=== PATIENT | male | born 1930 | race Caucasian/White ===

== ENCOUNTER → 2017-11-02 | Outpatient (CLI) | payer MEDICARE, BC ==
[~2017-11-02] MED LIST: ASPI-986 PO; BETA1TAB20 PO; CHOL200010 PO; CLOP75TA16 PO; FOLI-43 PO; GADOBENATE DIMEGLUMINE 529 MG/ML 10ML IV ONE; LEVO25TA7 PO; SIMV20TA6 PO
== END | disposition home or self-care (01) ==
LOC: MRI 13:49
DX: G45.9 Transient cerebral ischemic attack, unspecified (principal); G31.9 Degenerative disease of nervous system, unspecified; R51 Headache; R42 Dizziness and giddiness; I13.0 Hypertensive heart and chronic kidney disease with heart failure and stage 1 through stage 4 chronic kidney disease, or unspecified chronic kidney disease; N18.9 Chronic kidney disease, unspecified; I50.9 Heart failure, unspecified; Z79.82 Long term (current) use of aspirin
CPT/HCPCS: 70553; A9577

== ENCOUNTER 2018-02-17 21:43 | Emergency (ER) | payer MEDICARE, BC ==
[~2018-02-17] VITALS: Ht 167.6 cm; Wt 71.0 kg
[~2018-02-17 21:43] MED LIST changes: -GADOBENATE DIMEGLUMINE 529 MG/ML 10ML IV ONE
[2018-02-18 00:32] LABS: BASOPHILS % 0.9 % (0.0-2.0); EOSINOPHILS % 3.7 % (0.0-5.0); HEMATOCRIT. 31.8 % (42.0-52.0); HEMOGLOBIN. 10.9 g/dL (14.0-18.0); LYMPHOCYTES % 19.8 % (20.0-50.0); MEAN CORPUSCULAR HEMOGLOBIN 32.2 pg (28.0-32.0); MEAN CORPUSCULAR VOLUME 94.2 fL (80.0-94.0); MEAN PLATELET VOLUME 7.8 fl (7.4-10.4); MONOCYTES % 12.4 % (2.0-8.0); NEUTROPHILS % 63.2 % (40.0-76.0); PLATELET 173 x1000/uL (130-400); RED BLOOD CELL COUNT 3.38 mill/uL (4.7-6.1); RED CELL DISTRIBUTION WIDTH 13.7 % (11.6-14.6)
[2018-02-18 00:39] LABS: CHLORIDE 105 mEq/L (98-107)
[2018-02-18 00:43] LABS: ETHANOL BLOOD < 10 mg/dL
[2018-02-18 00:46] LABS: INR 1.1; PROTHROMBIN TIME 11.6 sec (9.4-11.6)
[2018-02-18 07:13] VITALS: BP 157/66
== END 2018-02-18 07:18 | disposition home or self-care (01) ==
LOC: ER 21:43
DX: S00.83XA Contusion of other part of head, initial encounter (principal); S60.511A Abrasion of right hand, initial encounter; Z79.82 Long term (current) use of aspirin; Z79.02 Long term (current) use of antithrombotics/antiplatelets; W18.30XA Fall on same level, unspecified, initial encounter; Y93.89 Activity, other specified; Y99.8 Other external cause status; Y92.89 Other specified places as the place of occurrence of the external cause; Z88.8 Allergy status to other drugs, medicaments and biological substances; Z95.5 Presence of coronary angioplasty implant and graft
CPT/HCPCS: 36415; 70450; 70486; 71045; 80053; 83880; 84484; 85025; 85610; 93005; 99285; G0482

== ENCOUNTER 2018-11-15 06:08 | Inpatient (IN) | payer MEDICARE, BC ==
[2018-11-15] VITALS (8 sets, daily range): BP systolic 129–199; BP diastolic 71–101
[~2018-11-15] VITALS: Ht 170.2 cm; Wt 64.7 kg
[2018-11-15] MEDS ORDERED: POLY17PO3 PO (08:02)
[2018-11-15] MEDS ORDERED: CARB1TAB5 PO (08:02)
[2018-11-15] MEDS ORDERED: ASPI-1159 PO (08:02)
[2018-11-15] MEDS ORDERED: IODIXANOL 320MG/ML 100 ML BOTTLE IV ONE (08:10)
[2018-11-15] MEDS ORDERED: LIDOCAINE HCL 1% 20ML VIAL (Pyxis) INJ ONE (08:10)
[2018-11-15] MEDS ORDERED: MIDAZOLAM HCL 2 MG/2 ML VIAL ONE (08:14)
[2018-11-15] MEDS ORDERED: FENTANYL CITRATE/PF 50MCG/ML 2ML VIAL ONE (08:14)
[2018-11-15] MEDS ORDERED: IOHEXOL-300 100 ML BOTTLE ONE (08:55)
[2018-11-15] MEDS ORDERED: ASPIRIN 325MG TABLET ONE (09:50)
[2018-11-15] MEDS ORDERED: CLOPIDOGREL 75MG TABLET ONE (09:50)
[2018-11-15] MEDS ORDERED: ATROPINE SULFATE 1MG/10ML SYR IV PRN (10:00)
[2018-11-15] MEDS ORDERED: ACETAMINOPHEN 325MG TABLET PO PRN (10:00)
[2018-11-15] MEDS ORDERED: ONDANSETRON HCL 4MG/2ML INJ IV PRN (10:00)
[2018-11-15] MEDS ORDERED: AMLODIPINE 5MG TABLET PO ONE (11:30)
[2018-11-15] MEDS: POLYETHYLENE GLYCOL 3350 (17GM) 1 DOSE PACK PO SCH (11:45)
[2018-11-15] MEDS ORDERED: SODIUM CHLORIDE 0.45% 500 ML IV ONE (14:00)
[2018-11-15] MEDS: CHOLECALCIFEROL (D3) 1000 UNIT TABLET PO SCH (14:01)
[2018-11-15] MEDS ORDERED: ENALAPRIL 2.5MG/2ML VIAL 2ML IV PRN (14:45)
[2018-11-15] MEDS ORDERED: NITROGLYCERIN 50MCG/ML 10ML VIAL (CATH LAB) IV ONE (14:58)
[2018-11-15] MEDS ORDERED: HEPARIN SODIUM 1,000 UNIT/1ML VIAL IV ONE (15:06)
[2018-11-16] VITALS (7 sets, daily range): BP systolic 104–167; BP diastolic 52–80
[2018-11-16 06:25] LABS: BASOPHILS % 0.9 % (0.0-2.0); EOSINOPHILS % 3.7 % (0.0-5.0); HEMATOCRIT. 29.8 % (42.0-52.0); HEMOGLOBIN. 10.1 g/dL (14.0-18.0); LYMPHOCYTES % 15.2 % (20.0-50.0); MEAN CORPUSCULAR HEMOGLOBIN 32.1 pg (28.0-32.0); MEAN CORPUSCULAR VOLUME 94.8 fL (80.0-94.0); MEAN PLATELET VOLUME 8.3 fl (7.4-10.4); MONOCYTES % 11.2 % (2.0-8.0); PLATELET 165 x1000/uL (130-400); RED BLOOD CELL COUNT 3.15 mill/uL (4.7-6.1); RED CELL DISTRIBUTION WIDTH 13.3 % (11.6-14.6)
[2018-11-16] MEDS ORDERED: LEVOTHYROXINE SODIUM 25MCG TABLET PO SCH (06:50)
[2018-11-16] MEDS: CHOLECALCIFEROL (D3) 1000 UNIT TABLET PO SCH (08:12)
[2018-11-16] MEDS: POLYETHYLENE GLYCOL 3350 (17GM) 1 DOSE PACK PO SCH (08:13)
[2018-11-16] MEDS ORDERED: VIT A C PO SCH (09:00)
[2018-11-16] MEDS ORDERED: MINERALS PO SCH (09:00)
[2018-11-16] MEDS ORDERED: AMLODIPINE 5MG TABLET PO SCH (09:00)
[2018-11-16] MEDS ORDERED: [UNRECOGNIZED DRUG - OTHER] PO SCH (09:00)
[2018-11-16] MEDS ORDERED: ASPIRIN 325MG TABLET PO SCH (09:00)
[2018-11-16] MEDS ORDERED: CLOPIDOGREL 75MG TABLET PO SCH (09:00)
[2018-11-16] MEDS ORDERED: LUTEIN PO SCH (09:00)
== END 2018-11-16 11:10 | disposition home or self-care (01) | DRG 272 ==
LOC: CCL 06:08 → 3WST 06:09
PROVIDERS: ADMIT Specialist; ATTEND Specialist
PROC: B41F1ZZ Fluoroscopy of Right Lower Extremity Arteries using Low Osmolar Contrast (ICD-10-PCS; principal; 2018-11-15)
PROC: 04CK3ZZ Extirpation of Matter from Right Femoral Artery, Percutaneous Approach (ICD-10-PCS; 2018-11-15)
PROC: 047K3DZ Dilation of Right Femoral Artery with Intraluminal Device, Percutaneous Approach (ICD-10-PCS; 2018-11-15)
DX: I70.201 Unspecified atherosclerosis of native arteries of extremities, right leg (principal); E03.9 Hypothyroidism, unspecified; E78.5 Hyperlipidemia, unspecified; I11.9 Hypertensive heart disease without heart failure; I25.10 Atherosclerotic heart disease of native coronary artery without angina pectoris; I48.91 Unspecified atrial fibrillation; Z96.649 Presence of unspecified artificial hip joint; N28.9 Disorder of kidney and ureter, unspecified; Z86.73 Personal history of transient ischemic attack (TIA), and cerebral infarction without residual deficits; Z95.5 Presence of coronary angioplasty implant and graft; Z88.8 Allergy status to other drugs, medicaments and biological substances; Z79.899 Other long term (current) drug therapy; I44.0 Atrioventricular block, first degree
CPT/HCPCS: 36415; 37227; 75710; 80048; 85347; C1725; C1726; C1760; C1769; C1887; C1893; C1894; J1644; J2250; J3010; J3490; Q9967

== ENCOUNTER 2021-07-29 08:43 | Inpatient (IN) | payer MEDICARE, BC ==
[2021-07-29] VITALS (7 sets, daily range): BP systolic 131–182; BP diastolic 47–99
[~2021-07-29] VITALS: Ht 170.2 cm; Wt 67.8 kg
[~2021-07-29 08:43] MED LIST changes: +ASPI-1497 PO; -ASPI-986 PO; +CARB1TAB5 PO; +CLOP-31 PO; -CLOP75TA16 PO; -FOLI-43 PO; +HEPARIN SODIUM 1,000 UNIT/1ML VIAL IV ONE; +NICARDIPINE 100MCG/ML 10ML VIAL (CATH LAB) IV ONE; +NITROGLYCERIN 50MCG/ML 10ML VIAL (CATH LAB) IV ONE; +POLY17PO3 PO; -SIMV20TA6 PO
[2021-07-29] MEDS ORDERED: BETA1TAB20 MT (09:28)
[2021-07-29] MEDS ORDERED: LOSA50TA41 MT (09:28)
[2021-07-29] MEDS ORDERED: RIVA10TA MT (09:28)
[2021-07-29] MEDS ORDERED: MIDO10TA MT (09:28)
[2021-07-29] MEDS ORDERED: IODIXANOL 320MG/ML 100 ML BOTTLE IV ONE (10:23)
[2021-07-29] MEDS ORDERED: LIDOCAINE HCL 1% 20ML VIAL (Pyxis) INJ ONE (10:23)
[2021-07-29] MEDS ORDERED: MIDAZOLAM HCL 5 MG/5 ML VIAL ONE (10:24)
[2021-07-29] MEDS ORDERED: IOHEXOL-300 100 ML BOTTLE ONE (10:24)
[2021-07-29] MEDS ORDERED: FENTANYL CITRATE/PF 50MCG/ML 5ML VIAL ONE (10:24)
[2021-07-29] MEDS ORDERED: HEPARIN 1000 UNITS/ML 10ML ONE (10:25)
[2021-07-29] MEDS ORDERED: ACETAMINOPHEN 325MG TABLET PO PRN (11:15)
[2021-07-29] MEDS ORDERED: ATROPINE SULFATE 1MG/10ML SYR IV PRN (11:15)
[2021-07-29] MEDS ORDERED: ONDANSETRON HCL 4MG/2ML INJ IV PRN (11:15)
[2021-07-29] MEDS ORDERED: CLONIDINE 0.1MG TABLET PO PRN (13:00)
[2021-07-30] VITALS (9 sets, daily range): BP systolic 135–174; BP diastolic 71–92
[2021-07-30 08:00] LABS: BASOPHILS % 0.5 % (0.0-2.0); EOSINOPHILS % 1.1 % (0.0-5.0); HEMOGLOBIN. 11.1 g/dL (14.0-18.0); LYMPHOCYTES % 9.4 % (20.0-50.0); MEAN CORPUSCULAR HEMOGLOBIN 32.9 pg (28.0-32.0); MEAN PLATELET VOLUME 8.5 fl (7.4-10.4); MONOCYTES % 6.6 % (2.0-8.0); NEUTROPHILS % 82.4 % (40.0-76.0); PLATELET 183 x1000/uL (130-400); RED BLOOD CELL COUNT 3.36 mill/uL (4.7-6.1); RED CELL DISTRIBUTION WIDTH 14.5 % (11.6-14.6)
[2021-07-30] MEDS ORDERED: ASPIRIN 325MG TABLET PO SCH (09:00)
[2021-07-30] MEDS ORDERED: CLOPIDOGREL 75MG TABLET PO SCH (09:00)
== END 2021-07-30 14:35 | disposition home health service (06) | DRG 247 ==
LOC: CCL 08:43 → 3WST 08:44
PROVIDERS: ADMIT Specialist; ATTEND Specialist
PROC: 027035Z Dilation of Coronary Artery, One Artery with Two Drug-eluting Intraluminal Devices, Percutaneous Approach (ICD-10-PCS; principal; 2021-07-29)
PROC: 4A023N7 Measurement of Cardiac Sampling and Pressure, Left Heart, Percutaneous Approach (ICD-10-PCS; 2021-07-29)
PROC: B215YZZ Fluoroscopy of Left Heart using Other Contrast (ICD-10-PCS; 2021-07-29)
PROC: B211YZZ Fluoroscopy of Multiple Coronary Arteries using Other Contrast (ICD-10-PCS; 2021-07-29)
DX: T82.855A Stenosis of coronary artery stent, initial encounter (principal); I25.110 Atherosclerotic heart disease of native coronary artery with unstable angina pectoris; I50.22 Chronic systolic (congestive) heart failure; I48.19 Other persistent atrial fibrillation; I13.0 Hypertensive heart and chronic kidney disease with heart failure and stage 1 through stage 4 chronic kidney disease, or unspecified chronic kidney disease; Y83.1 Surgical operation with implant of artificial internal device as the cause of abnormal reaction of the patient, or of later complication, without mention of misadventure at the time of the procedure; E78.5 Hyperlipidemia, unspecified; E03.9 Hypothyroidism, unspecified; G20 Parkinson's disease; I73.9 Peripheral vascular disease, unspecified; N18.9 Chronic kidney disease, unspecified; Z96.642 Presence of left artificial hip joint; I48.0 Paroxysmal atrial fibrillation; I25.5 Ischemic cardiomyopathy; N40.0 Benign prostatic hyperplasia without lower urinary tract symptoms; R79.89 Other specified abnormal findings of blood chemistry; I25.2 Old myocardial infarction; Z79.01 Long term (current) use of anticoagulants; Z95.0 Presence of cardiac pacemaker; Z79.899 Other long term (current) drug therapy; Z88.8 Allergy status to other drugs, medicaments and biological substances; Z79.02 Long term (current) use of antithrombotics/antiplatelets; Y92.89 Other specified places as the place of occurrence of the external cause
CPT/HCPCS: 36415; 80048; 85025; 85347; 92928; 93005; 93458; A4565; C1769; C1874; C1887; C1893; J1644; J2250; J3010; J3490; Q9967